=== PATIENT | male | born 1950 | race Two or more races ===

== ENCOUNTER 2022-10-21 12:34 | Outpatient (RCR) | payer OTHER, SELFPAY | END 2022-10-22 14:18 | disposition home or self-care (01) | LOC: HO.WCC 12:34 | PROVIDERS: PCP Nurse Practitioner; Referring Provider Nurse Practitioner; Visit Provider Surgery | DX: I87.303 Chronic venous hypertension (idiopathic) without complications of bilateral lower extremity (principal); E10.40 Type 1 diabetes mellitus with diabetic neuropathy, unspecified; I10 Essential (primary) hypertension; Z79.4 Long term (current) use of insulin; Z87.891 Personal history of nicotine dependence | CPT/HCPCS: 99213 ==

== ENCOUNTER 2025-03-16 08:54 | Emergency (ER) | payer OTHER, SELFPAY ==
--- NOTE | 2025-03-16 09:14 | ED.CPR ---
HPI - CPR General Chief Complaint: Cardiac Arrest/CPR Stated Complaint: CARDIAC ARREST Time Seen by Provider: 03/16/25 09:12 Source: EMS Mode of arrival: EMS History of Present Illness ED Provider: HPI narrative: 74-year-old male with history of hypertension, type 2 diabetes, on methadone, who presented in cardiac arrest. Information was obtained from patient's and daughter as well as EMS. Family reports that around some of 40 irritating patient downstairs he usually gets short of breath as he was walking down few steps he became more short of breath, became pale and then was lower to the ground by family with a point he was unresponsive, EMS was called initially BLS crew arrived on the scene and then 5 minutes later ACLS arrived, patient noted initially to have an AFib without a pulse, he was shocked and by the time he presented to emergency department he received a total of 6 epis from EMS, he has been in [place], he was intubated with I gel. Family denies ongoing drug use trauma, alcohol misuse, nothing suspicious on the scene reported by EMS. He has had a left IO established. MD complaint: found unresponsive Review of Systems Constitutional: Constitutional: Reports as per [facility] Social History Social History Advance Directives: No Advance Directives Information Provided: Yes Physical Exam Const: Other: Gen: ?No facial head trauma noted HEENT: Pupils dilated to 4 mm, glassy nonreactive, intubated with eye gel, ventilating well CV: No pulses, cool skin Resp: Moving air well bilaterally with BVM Abd: ?No bruising distention MSK: No deformities, left IO and, chronic venous stasis Skin: No bruising cuts to the back to the front, chronic venous stasis bilateral lower extremities Neuro: Unresponsive Medical Decision Making Medical Decision Making [facility] Narrative: Patient presented in cardiac arrest with ongoing CPR, see my HPI for information, there was no trauma noted, no concerns for underlying drug alcohol or overdose, head-to-toe exam performed, he is intubated with I gel did not feel that we need to exchange that as he was bagging very well old brought sounds bilaterally He has received additional epi doses see nurse's notes, sodium bicarb and calcium, his family arrived and due to the fact that is he has already had a prolonged downtime and has been in [facility], time of was called 09:10am Differential Diagnosis Massive heart attack, PE, subarachnoid hemorrhage, trauma, OD, Critical Care Time Critical Care Time Critical Care Time: Yes Total Critical Care Time: 45 Attestation: Time is exclusive of separately billable procedures. Time includes: direct patient care, patient reassessment, coordination of patient care, interpretation of data (laboratory data, pulse oximetry, arterial blood gases and chest xrays), review of patient's medical records, medical consultation and documentation of patient care. Procedures excluded from critical care time: central intravenous line placement and electrocardiography. Discharge Plan Discharge Clinical Impression: Cardiac arrest Patient Disposition: Date/Time: 03/16/25 09:10
--- OUTSIDE RECORDS SUMMARY | 2025-03-16 09:59 | XMS_ITS | Encounter Summary ---
Author Organization [facility], Address [address] [place] [address] Phone Care Team Providers Care Hearing Therapy Director Name Role Phone Joleen Yancey NP Primary Care Provider [phone] Encounter Details Date Type Department Care Team (Late st Contact Info) Description 02/05/2023 Documentation Only [facility], - Aditi Castro [address] [place] [id number] Chioma Cherry Social History Tobacco Use Types Packs/Day Years Used Date Smoking Tobacco: Former Cigarettes Alcohol Use Standard Drinks/Week Comments Never 0 (1 standard drink = 0.6 oz pur e alcohol) Sex and Gender Information Value Date Recorded Sex Assigned at Not on file Legal Sex Male 4:00 PM EDT Gender Identity Not on file Sexual Orientation Not on file COVID-19 Exposure Response Date Recorded In the last 10 days, have yo u been in contact with someone who was confirmed or suspected to have Coronavirus/COVID-19? No / Unsure 02/05/2023 9:42 AM EDT documented as of this encounter Plan of Treatment Not on file documented as of this encounter Visit Diagnoses Not on filedocumented in this encounter Care Teams Hearing Therapy Director Relationship Specialty Start Date End Date Joleen Yancey NP [address] [place] [id number] PCP - General Nurse Practitioner 08/27/22 documented as of this encounter
--- NOTE | 2025-03-16 11:22 | MHC.EDTECH ---
Addendum entered by Lilia Devine 03/16/25 11:25: IN CASE #[id number]. ME DECLINED. Original Note: Called [place] Office at [phone] and spoke with Harika.
[2025-03-16 17:10] LABS: Glucose, Whole Blood 191 mg/dL (60-115)
== END 2025-03-16 13:20 | disposition expired ==
PROVIDERS: Emergency Provider Emergency Medicine
DX: I46.9 Cardiac arrest, cause unspecified (principal)
CPT/HCPCS: 82947; 96374; 96375; 99282; 99285; J0171